=== PATIENT | female | born 1990 | race Caucasian/White ===

== ENCOUNTER 2018-04-15 10:45 | Outpatient (CLI) | payer BC ==
--- NOTE | 2018-04-15 12:12 | RAD ---
CHEST 2 VIEWS: Date: 04/15/18 HISTORY: Exposure to parasites. COMPARISON: None. FINDINGS: The lungs are clear. No pneumothorax or effusion. Cardiac silhouette and mediastinal contour within n ormal limits. IMPRESSION: No acute intrathoracic abnormality. POS: CET
== END 2018-04-15 10:46 | disposition home or self-care (01) ==
LOC: BICRAD 10:45
PROVIDERS: ATTEND Family Medicine
DX: T75.89XA Other specified effects of external causes, initial encounter (principal); Z00.00 Encounter for general adult medical examination without abnormal findings
CPT/HCPCS: 36415; 71046; 80053; 80061; 81001; 84443; 85025